=== PATIENT | female | born 1955 | race Caucasian/White ===

== ENCOUNTER 2023-02-09 20:31 | Emergency (ER) | payer BC, SELFPAY ==
[2023-02-09 20:33] VITALS: BP 142/133; PULSE 87; RESP 18; TEMP 36.8; O2SAT 97; BMI 32.2
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
[2023-02-09 22:08] VITALS: BP 0/0; PULSE 0; RESP 0; TEMP -17.7; TEMP 0
== END 2023-02-09 22:00 | disposition left against medical advice (07) ==
LOC: ER 21:01
PROVIDERS: Emergency Provider Emergency Medicine
DX: Z53.21 Procedure and treatment not carried out due to patient leaving prior to being seen by health care provider (principal)
CPT/HCPCS: 99211